=== PATIENT | male | born 1945 | race Caucasian/White ===

== ENCOUNTER 2018-09-22 11:13 | Day surgery (SDC) | payer MEDICARE, BC ==
[~2018-09-22] VITALS: Wt 101.8 kg
[~2018-09-22 11:13] MED LIST: Amlodipine Besyl5 MG PO; COLOSTRUM500 MG PO; EYE VITAMIN-MI1 EACH PO; EYE-VITE PO; LOSA25 PO; METF500 PO; Norco 5-325 Ta1 EACH PO; Questran4 GM PO; TOLT4 PO; Zofran Odt4 MG SL
--- NOTE | 2018-09-22 11:43 | NUR ---
Ambulatory in Day SurgeryPatient states colon prep results clear. History, Chart, Medications and Allergies reviewed before start of procedure.Lungs clear T/O to Auscultation. Patient confirms NPO status and agrees with scheduled surgery. Pre-Op teaching done. Pt verbalizes understanding.
--- NOTE | 2018-09-22 12:33 | NUR ---
09/22/[address] PRESENT TO ASSIST WITH ANESTHESIA CARE TODAY, PLEASE SEE ANESTHESIA RECORD FOR DETAILS. PATIENT CONFIRMS NPO STATUS AND AGREES WITH SCHEDULED PROCEDURE. MONITOR INTACT WITH CONTINUOUS PULSE OXIMETRY AND INTERMITTENT BP. O2 VIA N/C INTACT THROUGHOUT SEDATION/PROCEDURE.
--- NOTE | 2018-09-22 13:58 | NUR ---
D/C INSTRUCTIONS GIVEN WITH STATED UNDERSTANDING. STEADY. UP TO DRESS INDEPENDENTLY.
== END 2018-09-22 14:01 | disposition home or self-care (01) ==
LOC: ORSCMMR 11:13 → ORD 12:45 → ORSCMMR 14:01
PROVIDERS: Internal Medicine Gastroenterology
PROC: 0DBN8ZX Excision of Sigmoid Colon, Via Natural or Artificial Opening Endoscopic, Diagnostic (ICD-10-PCS; principal; 2018-09-22 12:45)
PROC: 0DBK8ZX Excision of Ascending Colon, Via Natural or Artificial Opening Endoscopic, Diagnostic (ICD-10-PCS; principal; 2018-09-22 12:45)
PROC: 0DBL8ZX Excision of Transverse Colon, Via Natural or Artificial Opening Endoscopic, Diagnostic (ICD-10-PCS; principal; 2018-09-22 12:45)
PROC: 0DBH8ZX Excision of Cecum, Via Natural or Artificial Opening Endoscopic, Diagnostic (ICD-10-PCS; principal; 2018-09-22 12:45)
DX: Z12.11 Encounter for screening for malignant neoplasm of colon (principal); Z86.010 Personal history of colon polyps; D12.6 Benign neoplasm of colon, unspecified; D12.3 Benign neoplasm of transverse colon; D12.0 Benign neoplasm of cecum; D12.5 Benign neoplasm of sigmoid colon; K63.5 Polyp of colon; K57.30 Diverticulosis of large intestine without perforation or abscess without bleeding; K64.8 Other hemorrhoids; I10 Essential (primary) hypertension; G47.33 Obstructive sleep apnea (adult) (pediatric); E11.9 Type 2 diabetes mellitus without complications; E78.00 Pure hypercholesterolemia, unspecified; E66.01 Morbid (severe) obesity due to excess calories; Z68.37 Body mass index [BMI] 37.0-37.9, adult; Z79.899 Other long term (current) drug therapy
CPT/HCPCS: 82947; 88305; J2704; J7120

== ENCOUNTER → 2019-12-29 | Outpatient (CLI) | payer MEDICARE, BC | END | disposition home or self-care (01) | LOC: LAB 14:17 → LAB SHORT 14:17 | DX: E11.9 Type 2 diabetes mellitus without complications (principal) | CPT/HCPCS: 82043 ==

== ENCOUNTER 2022-04-03 07:25 | Day surgery (SDC) | payer MEDICARE, BC ==
[~2022-04-03] VITALS: Ht 165.1 cm; Wt 109.3 kg
[2022-04-03] MEDS ORDERED: PRESERVISION A1 EAC1 PO (07:38)
[2022-04-03] MEDS ORDERED: MYRBETRIQ25 MG PO (07:38)
[2022-04-03] MEDS ORDERED: GLIP5 PO (07:38)
--- NOTE | 2022-04-03 07:44 | NUR ---
04/03/22 0744 Ramirez Sands CALL LIGHT WITHIN REACH. TETRACAIN IN LEFT EYE AT 0740 PLEDGETT AT 0741
== END 2022-04-03 09:23 | disposition home or self-care (01) ==
LOC: ORSCSDS 07:25
PROVIDERS: Student in an Organized Health Care Education/Training Program
PROC: 08RK3JZ Replacement of Left Lens with Synthetic Substitute, Percutaneous Approach (ICD-10-PCS; principal; 2022-04-03 09:00)
DX: H25.12 Age-related nuclear cataract, left eye (principal); E11.9 Type 2 diabetes mellitus without complications; G47.33 Obstructive sleep apnea (adult) (pediatric); E78.00 Pure hypercholesterolemia, unspecified; I10 Essential (primary) hypertension; E66.01 Morbid (severe) obesity due to excess calories; Z68.41 Body mass index [BMI] 40.0-44.9, adult; Z79.3 Long term (current) use of hormonal contraceptives; Z79.899 Other long term (current) drug therapy
CPT/HCPCS: 82947; J2001; J2250; J3010; J7040; V2632

== ENCOUNTER 2022-07-04 08:34 | Day surgery (SDC) | payer MEDICARE, BC ==
[~2022-07-04] VITALS: Ht 165.1 cm; Wt 107.9 kg
[~2022-07-04 08:34] MED LIST changes: +GLIP5 PO; +MYRBETRIQ25 MG PO; +PRESERVISION A1 EAC1 PO
[2022-07-04] MEDS ORDERED: LOSA25 (09:00)
[2022-07-04] MEDS ORDERED: METF500 (09:00)
[2022-07-04] MEDS ORDERED: GLIP2.5ER (09:00)
[2022-07-04] MEDS ORDERED: MYRBETRIQ8 MG/1 ML (09:00)
[2022-07-04] MEDS ORDERED: Amlodipine Bes2.5 MG (09:00)
[2022-07-04] MEDS ORDERED: CHOLESTYRAMI239.4 G1 (09:01)
[2022-07-04] MEDS ORDERED: Preservision S1 EACH (09:01)
[2022-07-04 15:28] VITALS: BP 155/77
== END 2022-07-04 12:25 | disposition home or self-care (01) ==
LOC: ORSCSDS 08:34
PROVIDERS: Internal Medicine Gastroenterology
PROC: 0DBL8ZX Excision of Transverse Colon, Via Natural or Artificial Opening Endoscopic, Diagnostic (ICD-10-PCS; principal; 2022-07-04 10:00)
PROC: 0DBK8ZX Excision of Ascending Colon, Via Natural or Artificial Opening Endoscopic, Diagnostic (ICD-10-PCS; principal; 2022-07-04 10:00)
PROC: 0DBH8ZX Excision of Cecum, Via Natural or Artificial Opening Endoscopic, Diagnostic (ICD-10-PCS; principal; 2022-07-04 10:00)
DX: Z12.11 Encounter for screening for malignant neoplasm of colon (principal); Z86.010 Personal history of colon polyps; D12.0 Benign neoplasm of cecum; D12.3 Benign neoplasm of transverse colon; K63.5 Polyp of colon; K57.30 Diverticulosis of large intestine without perforation or abscess without bleeding; E78.5 Hyperlipidemia, unspecified; I10 Essential (primary) hypertension; G47.33 Obstructive sleep apnea (adult) (pediatric); Z87.891 Personal history of nicotine dependence; E11.9 Type 2 diabetes mellitus without complications; E78.00 Pure hypercholesterolemia, unspecified; Z79.4 Long term (current) use of insulin; Z79.84 Long term (current) use of oral hypoglycemic drugs; Z79.899 Other long term (current) drug therapy; E66.9 Obesity, unspecified; Z68.39 Body mass index [BMI] 39.0-39.9, adult
CPT/HCPCS: 82947; 88305; J2704; J7120

== ENCOUNTER → 2022-10-10 | Outpatient (CLI) | payer MEDICARE, BC ==
[~2022-10-10] MED LIST changes: +Amlodipine Bes2.5 MG; +CHOLESTYRAMI239.4 G1; +GLIP2.5ER; +LOSA25; +METF500; +MYRBETRIQ8 MG/1 ML; +Preservision S1 EACH
[2022-10-10 16:01] LABS: Alanine Aminotransfer (ALT/SGP 32 U/L (12-78); Albumin, Blood 3.3 g/dL (3.4-5.0); Alk Phos 88 U/L (50-136); Anion Gap 6 mmol/L (6-16); Aspartate Aminotrans (AST/SGOT 19 U/L (12-37); Bilirubin, Total 0.5 mg/dL (0.1-1.0); Blood Urea Nitrogen 20 mg/dL (8-24); Bun/Creatinine Ratio 21.3 (12.0-20.0); CHOL/HDL RATIO 4.1; CO2, Blood 24 mmol/L (21-32); Calcium, Blood 8.8 mg/dL (8.5-10.1); Chloride, Blood 112 mmol/L (98-108); Cholesterol 163 mg/dL (50-200); Creatinine, Blood 0.94 mg/dL (0.60-1.20); Globulin, Blood 3.2 g/dL (2.2-4.0); Glomerular Filtration Rate 83 (60-); Glucose, Blood 128 mg/dL (70-99); HDL Cholesterol 40 mg/dL (>39); LDL/HDL RATIO 2.7; Low Density Lipoprotein Chol 107 mg/dL (0-110); Potassium, Blood 4.6 mmol/L (3.5-5.5); Sodium, Blood 142 mmol/L (136-145); Total Protein, Blood 6.5 g/dL (6.4-8.2); Triglycerides 79 mg/dL (30-160); Very Low Density Lipoprot Chol 15 mg/dL (6-32)
[2022-10-10 17:33] LABS: Microalb/Creat Ratio UR, Rand 48.383 mg/g (0.000-30.000); Microalbumin, Random Urine 80.8 mg/L (0.000-20.000)
== END ==
LOC: LAB SHORT 08:40 → LAB 08:40
PROVIDERS: Hospitalist
DX: E11.69 Type 2 diabetes mellitus with other specified complication (principal); E78.2 Mixed hyperlipidemia; I10 Essential (primary) hypertension
CPT/HCPCS: 80053; 80061; 82043; 82570; 83036

== ENCOUNTER → 2024-11-23 | Outpatient (CLI) | payer MEDICARE, BC ==
[2024-11-23 17:30] LABS: Anion Gap 10.0 mmol/L (3-11); Blood Urea Nitrogen 18.0 mg/dL (8-24); CO2, Blood 28.0 mmol/L (21-32); Calcium, Blood 9.0 mg/dL (8.5-10.1); Chloride, Blood 102.0 mmol/L (98-108); Creatinine, Blood 1.25 mg/dL (0.60-1.20); Glucose, Blood 146.0 mg/dL (70-99); Potassium, Blood 4.1 mmol/L (3.5-5.5); Sodium, Blood 136.0 mmol/L (136-145)
[2024-11-23 19:03] LABS: Creatinine, Urine Random 178.0 mg/dL (27.00-270.00); Microalb/Creat Ratio UR, Rand 15.955 mg/g (0.000-30.000); Microalbumin, Random Urine 28.4 mg/L (0.000-20.000)
== END ==
LOC: LAB 14:11 → LAB SHORT 14:11
PROVIDERS: Hospitalist
DX: I10 Essential (primary) hypertension (principal); E11.69 Type 2 diabetes mellitus with other specified complication
CPT/HCPCS: 80048; 82043; 82570